=== PATIENT | male | born 1965 | race Caucasian/White ===

== ENCOUNTER → 2020-11-28 11:34 | Outpatient (CLI) | payer OTHER, SELFPAY ==
--- NOTE | ~2020-11-28 | XR_ITS ---
XR chest 2V DATE: 11/28/2020 11:56 INDICATION: Tobacco use. No fever. TECHNIQUE: PA and lateral views COMPARISON: 01/06/2017 PA and lateral chest FINDINGS: Normal heart size. No hilar or mediastinal enlargement. No pulmonary infiltrate or consol idation, pulmonary vascular congestion or pleural effusion or pneumothorax. IMPRESSION: No active cardiopulmonary disease Reviewed, dictated and finalized at location A.
== END ==
PROVIDERS: PCP Family Medicine; Visit Provider Physician Assistant Medical
DX: R06.2 Wheezing (principal); Z72.0 Tobacco use
CPT/HCPCS: 71046

== ENCOUNTER → 2021-01-02 08:37 | Outpatient (CLI) | payer OTHER, SELFPAY ==
--- NOTE | ~2021-01-02 | MR_ITS ---
EXAMINATION: MR brain/brain stem wo/w con DATE: 01/02/2021 09:52 INDICATION: Other amnesia. TECHNIQUE: Magnetic resonance imaging (MRI) of the brain and brainstem was performed without and with 14 mL MultiHance intravenous contrast. Sequences included sagittal and axial T1-weighted FSE, axial diffusion-weighted FS EPI, axial T2*-weighted GRE, axial T2-weighted FLAIR Propeller, and axial T2-we ighted Propeller. Postcontrast sequences included axial and coronal T1-weighted FSE. Apparent diffusi on coefficient (ADC) maps were created. COMPARISON: Neck CT 07/06/2014 FINDINGS: There is no intracranial hemorrhage, acute infarction, or abnormal intracranial mass lesion . The ventricles are normal in size. There are bilateral mastoid effusions. There is mild mucosal thi ckening in the paranasal sinuses. The orbits are normal. IMPRESSION: 1. Normal brain. Reviewed, dictated and finalized at location A. IMPRESSION: 1. Normal brain.
[2021-01-02 09:28] LABS: Estimated Glomerular Filt Rate > 60
== END ==
PROVIDERS: PCP Family Medicine; Visit Provider Physician Assistant Medical
DX: R41.3 Other amnesia (principal)
CPT/HCPCS: 70553; A9577

== ENCOUNTER 2021-01-30 19:03 | Emergency (ER) | payer OTHER, SELFPAY ==
--- NOTE | ~2021-01-30 | XR_ITS ---
XR finger 5th LT min 2V DATE: 01/30/2021 19:20 INDICATION: Laceration with chain saw blade TECHNIQUE: 4 views COMPARISON: None FINDINGS: There is soft tissue swelling of the distal medial fifth digit. No radiopaque foreign body or subcutaneous emphysema is evident. No fracture, dislocation, periosteal reaction or bone destruction. Mild osteoarthritis at the distal interphalangeal joint. 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
[2021-01-30 19:14] VITALS: BP 113/76; PULSE 80; RESP 16; TEMP 36.9; O2SAT 98
--- NOTE | 2021-01-30 19:27 | ED.SKABFB ---
HPI - Skin/Abscess/Foreign Bdy General Chief complaint: Skin/Abscess/Foreign Body Stated complaint: L FINGER LACERATION Time Seen by Provider: 01/30/21 19:23 Source: patient, RN notes reviewed and old records reviewed Mode of arrival: ambulatory Limitations: no limitations History of Present Illness HPI narrative: 55 year old male who presents to [facility] care with laceration to the l5th digit of his left hand which occurred while he was drying to get the grass out of chainsaw while it was not running. Patient states that it happened a few hours ago and he put a bandage around it and came to get it fixed after he had completed his job. Patient has not had recent tetanus update will receive today while in clinic. Patient has full mobility of his 5th left finger, denies any tingling or numbness to his 5th finger, strong pulse to left wrist. complaint: laceration Onset (ago): hour(s) (1529 today) Tetanus up to date: unsure Location: L hand (left 5th finger) Severity: moderate Severity scale (1-10): 4 Quality: aching Pain Consistency: constant Relieving factors: none Exacerbating factors: none Context: none Associated symptoms: denies other symptoms Treatments prior to arrival: bandages Related Data Allergies Allergy/AdvReac Type Severity Reaction Status Date / Time No Known Allergies Allergy Verified 12/05/20 08:59 Review of Systems Review of Systems: Narrative: CONSTITUTIONAL: Denies fever, chills, or sweats. EYES: Denies visual changes, redness, or discharge. ENT: Denies rhinorrhea, congestion, sore throat, or otalgia. CARDIOVASCULAR: Denies chest pain, palpitations, or edema. RESPIRATORY: Denies cough or dyspnea. GASTROINTESTINAL: Denies abdominal pain, nausea, vomiting, or diarrhea. GENITOURINARY: Denies dysuria or hematuria. SKIN: Denies rash or itching. 1.5 cm laceration to the medial aspect of his left 5th finger with no damage to nail MUSCULOSKELETAL: Denies back pain, joint pain, or myalgia. NEUROLOGIC: Denies headache, numbness, or weakness. PSYCHIATRIC:Positive anxiety or depression. All systems reviewed & are unremarkable except as noted in HPI and below PMFSH Past Medical History Medical History (Updated 02/01/21 @ 15:29 by Sue Leo NP) Anxiety and depression Body mass index (BMI) 23 or greater Elevated cholesterol Mass of soft tissue removed by Dr Galvez from right tibia Surgical History Surgical History (Updated 02/01/21 @ 15:14 by Sue Leo NP) History of tonsillectomy Family History Family History Other Family history of lupus erythematosus Social History Social History Smoking packs per day: 2 Smoking cigarettes per day: 40.0 Years smoked: 40 Smoking pack-years: 80.00 Smoking status: Current every day smoker Tobacco type: cigarettes Second hand tobacco smoke exposure: No Alcohol intake: current Drinks per week: 12 Substance use: never Substance use type: does not use Comments At time of signature, agree with nursing past medical, surgical, social and family history. There is no relevant family history pertinent to the presenting complaint Exam Narrative: Exam Narrative: GENERAL: Well-appearing, well-nourished, appears older than stated age and in no acute distress. HEAD: Normocephalic, atraumatic. EYES: PERRLA and EOMI. ENT: Nares clear, no rhinorrhea or epistaxis. Mucous membranes moist. NECK: Supple.no lymphadenopathy CHEST: Clear to auscultation. No respiratory distress.SAO2 98% on room air HEART: Regular rate and rhythm. No murmur heard. Normal peripheral pulses. ABDOMEN: Soft, nontender, nondistended, normal active bowel sounds. EXTREMITIES: Normal range of motion. No edema. SKIN: Warm, dry, no rash.1.5 cm laceration to the medial aspect of 5th left finger with no nail involvement. patient has full movility of his left finger wit
[2021-01-30] MEDS: TETANUS,DIPHTHERIA,AC PERTUSSIS ADULT (0.5 ML) BOOSTRIX IM (19:39)
== END 2021-01-30 20:07 | disposition home or self-care (01) ==
PROVIDERS: Emergency Provider Registered Nurse; PCP Family Medicine
DX: S61.217A Laceration without foreign body of left little finger without damage to nail, initial encounter (principal); W29.3XXA Contact with powered garden and outdoor hand tools and machinery, initial encounter; Z23 Encounter for immunization; F17.210 Nicotine dependence, cigarettes, uncomplicated; F41.9 Anxiety disorder, unspecified; F32.9 Major depressive disorder, single episode, unspecified; E78.00 Pure hypercholesterolemia, unspecified
CPT/HCPCS: 12001; 73140; 90471; 90715; 99213; G0463